=== PATIENT | male | born 1960 | race Caucasian/White ===

== ENCOUNTER 2017-12-21 16:56 | Emergency (ER) | payer OTHER, SELFPAY ==
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
[2017-12-21 17:04] VITALS: BP 124/65; PULSE 60; RESP 18; TEMP 36.9; O2SAT 97; BMI 28.0
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
[2017-12-21] MEDS: IBUPROFEN 400 MG TABLET 800 MG PO (17:51)
[2017-12-21 17:59] VITALS: BP 115/82; PULSE 62; RESP 15; O2SAT 98
== END 2017-12-21 18:23 | disposition home or self-care (01) ==
PROVIDERS: Emergency Provider Emergency Medicine
DX: S70.01XA Contusion of right hip, initial encounter (principal); V29.9XXA Motorcycle rider (driver) (passenger) injured in unspecified traffic accident, initial encounter; M25.521 Pain in right elbow
CPT/HCPCS: 71045; 73502; 99282; 99283